=== PATIENT | male | born 1980 | race Caucasian/White ===

== ENCOUNTER 2016-10-10 08:05 | Emergency (ER) | payer MEDICAID ==
[~2016-10-10] VITALS: Ht 172.7 cm; Wt 64.1 kg
[~2016-10-10 08:05] MED LIST: BUPR1FIL5 PO; QUET50TA8 PO
[2016-10-10 09:57] VITALS: BP 105/67
[2016-10-10] MEDS ORDERED: METH40TA3 PO (20:38)
[2016-10-10] MEDS ORDERED: ALBU0.63 NEB (20:39)
== END 2016-10-10 10:01 | disposition home or self-care (01) ==
LOC: ED 08:16
DX: F11.129 Opioid abuse with intoxication, unspecified (principal); J98.01 Acute bronchospasm; Z87.891 Personal history of nicotine dependence
CPT/HCPCS: 71020; 99284; J7512

== ENCOUNTER 2016-10-10 20:20 | Emergency (ER) | payer MEDICAID ==
[~2016-10-10] VITALS: Ht 172.7 cm; Wt 70.0 kg
[2016-10-10] MEDS ORDERED: METH40TA3 PO (20:38)
[2016-10-10] MEDS ORDERED: ALBU0.63 NEB (20:39)
[2016-10-10] MEDS ORDERED: ALBUTEROL/IPRATROPIUM 2.5MG/0.5MG, 3 ML ONE (21:15)
[2016-10-10 22:02] LABS: ACETAMINOPHEN < 2 mcg/mL (10-30)
[2016-10-10 22:04] VITALS: BP 101/59
[2016-10-10 22:45] LABS: DAU SCREEN DISCLAIMER
[2016-10-10 22:48] LABS: ASPARTATE AMINO TRANSFERASE 31 U/L (15-37); BLOOD UREA NITROGEN 19 mg/dL (7-18)
== END 2016-10-10 23:45 | disposition home or self-care (01) ==
LOC: ED 23:37
DX: J45.21 Mild intermittent asthma with (acute) exacerbation (principal); F11.10 Opioid abuse, uncomplicated
CPT/HCPCS: 36415; 80053; 80307; 80329; 85025; 85379; 93005; 94640; 99285; G0480; J7512

== ENCOUNTER 2017-02-06 10:29 | Emergency (ER) | payer MEDICAID ==
[~2017-02-06] VITALS: Ht 172.7 cm; Wt 63.6 kg
[~2017-02-06 10:29] MED LIST changes: +ALBU0.63 NEB; +METH40TA3 PO
[2017-02-06] MEDS ORDERED: LIDOCAINE 1%, 20ML ONE (11:58)
[2017-02-06] MEDS ORDERED: IBUPROFEN 200 MG TABLET ONE (13:02)
[2017-02-06 13:05] VITALS: BP 106/75
[2017-02-06] MEDS ORDERED: IBUPROFEN 200 MG TABLET PO ONE (13:30)
== END 2017-02-06 13:11 | disposition home or self-care (01) ==
LOC: ED 10:53
DX: L02.413 Cutaneous abscess of right upper limb (principal); J45.909 Unspecified asthma, uncomplicated; F19.10 Other psychoactive substance abuse, uncomplicated
CPT/HCPCS: 10060

== ENCOUNTER 2017-02-08 22:07 | Emergency (ER) | payer MEDICAID ==
[~2017-02-08] VITALS: Ht 172.7 cm; Wt 63.9 kg
[2017-02-08 22:08] VITALS: BP 105/70
== END 2017-02-08 22:39 | disposition home or self-care (01) ==
LOC: ED 22:35
DX: L02.413 Cutaneous abscess of right upper limb (principal); F17.210 Nicotine dependence, cigarettes, uncomplicated; J45.909 Unspecified asthma, uncomplicated
CPT/HCPCS: 99281

== ENCOUNTER 2017-07-03 04:14 | Emergency (ER) | payer MEDICAID ==
[~2017-07-03] VITALS: Ht 172.7 cm; Wt 62.3 kg
[2017-07-03 04:15] VITALS: BP 106/73
== END 2017-07-03 04:31 | disposition left against medical advice (07) ==
LOC: ED 04:25
DX: Z53.21 Procedure and treatment not carried out due to patient leaving prior to being seen by health care provider (principal)

== ENCOUNTER 2017-09-14 01:45 | Emergency (ER) | payer MEDICAID ==
[~2017-09-14] VITALS: Ht 172.7 cm; Wt 58.8 kg
[2017-09-14 01:47] VITALS: BP 111/71
== END 2017-09-14 02:34 | disposition home or self-care (01) ==
LOC: ED 02:05
DX: L02.413 Cutaneous abscess of right upper limb (principal); J45.909 Unspecified asthma, uncomplicated
CPT/HCPCS: 99281

== ENCOUNTER 2018-06-07 20:00 | Emergency (ER) | payer MEDICAID ==
[~2018-06-07] VITALS: Ht 172.7 cm; Wt 62.0 kg
[~2018-06-07 20:00] MED LIST changes: -QUET50TA8 PO; +QUET50TA9 PO
[2018-06-07 20:08] VITALS: BP 114/72
== END 2018-06-07 21:22 | disposition home or self-care (01) ==
LOC: ED 21:10
DX: J06.9 Acute upper respiratory infection, unspecified (principal); J18.9 Pneumonia, unspecified organism; J45.909 Unspecified asthma, uncomplicated
CPT/HCPCS: 71046; 93005; 99283; J7512

== ENCOUNTER 2019-03-21 03:53 | Emergency (ER) | payer SELFPAY ==
[~2019-03-21] VITALS: Ht 172.7 cm; Wt 61.3 kg
[2019-03-21 03:55] VITALS: BP 85/59
[2019-03-21] MEDS ORDERED: METH40TA3 PO (03:59)
[2019-03-21] MEDS ORDERED: ALBUTEROL/IPRATROPIUM 2.5MG/0.5MG, 3 ML ONE (04:19)
--- NOTE | 2019-03-21 04:23 | NUR ---
WHILE PREFORMING EKG, RN FOUND HYPODERMIC NEEDLE IN PT RIGHT SOCK. PT STATES "OH I'LL GRAB THAT" AND PUTS NEEDLE IN HIS POCKET. PT ALSO PULLS A VIAL OF NARCAN OUT OF HIS LEFT SOCK AND STATES "YA KNOW, SAFETY FIRST".
[2019-03-21] MEDS ORDERED: ALBUTEROL/IPRATROPIUM 2.5MG/0.5MG, 3 ML NPPB ONE (04:30)
--- NOTE | 2019-03-21 05:02 | NUR ---
REPORT RECEIVED, CARE ASSUMED. WAITING FOR CXR RESULTS.
--- NOTE | 2019-03-21 05:59 | NUR ---
PT DOZING INTERMITTERNTLY, AROUSES EASILY. NO IV TO DC. REVIEWED DC INSTRUCTIONS WITH PT, UNDERSTANDING VERBALIZED. PT LEFT AMB, GAIT STEADY.
== END 2019-03-21 06:02 | disposition home or self-care (01) ==
LOC: ED 05:55
DX: J20.8 Acute bronchitis due to other specified organisms (principal); B96.89 Other specified bacterial agents as the cause of diseases classified elsewhere; F17.210 Nicotine dependence, cigarettes, uncomplicated; J45.909 Unspecified asthma, uncomplicated
CPT/HCPCS: 71046; 93005; 94640; 99283; 99407; J7620

== ENCOUNTER 2019-11-29 09:12 | Emergency (ER) | payer MEDICAID ==
[~2019-11-29] VITALS: Ht 172.7 cm; Wt 74.2 kg
[2019-11-29 10:09] LABS: BASOPHILS # (AUTO) 0.04 x10^3/uL (0-0.1); BASOPHILS % (AUTO) 0 % (0-1); EOSINOPHILS # (AUTO) 0.49 x10^3/uL (0-0.4); EOSINOPHILS % (AUTO) 5 % (1-7); LYMPHOCYTES % (AUTO) 21 % (22-44); MD NO; MEAN CORPUSCULAR HEMOGLOBIN 32.9 pg (27.5-34.5); MEAN CORPUSCULAR HGB CONC 33.4 g/dL (33.2-36.2); MEAN CORPUSCULAR VOLUME 98.5 fL (81-97); MEAN PLATELET VOLUME 7.8 fL (7.4-10.4); MONOCYTES % (AUTO) 8 % (2-9); NEUTROPHILS # (AUTO) 5.98 x10^3/uL (1.8-6.8); NEUTROPHILS % (AUTO) 66 % (42-75); PLATELET COUNT 203 x10^3/uL (130-400); RED BLOOD COUNT 5.16 x10^6/uL (4.38-5.82); RED CELL DISTRIBUTION WIDTH 12.8 % (9.4-14.8)
[2019-11-29 10:15] LABS: ANION GAP 3 mmol/L (5-15); CALCIUM 9.5 mg/dL (8.5-10.1); CHLORIDE 110 mmol/L (98-107); CREATININE 1.15 mg/dL (0.7-1.3)
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
--- NOTE | 2019-11-29 10:18 | NUR ---
late entry for 1016 pt to room from lobby at this time. robson
[2019-11-29 11:00] VITALS: BP 137/70
== END 2019-11-29 11:01 | disposition home or self-care (01) ==
LOC: ED 10:42
DX: J45.31 Mild persistent asthma with (acute) exacerbation (principal); Z76.0 Encounter for issue of repeat prescription; R94.31 Abnormal electrocardiogram [ECG] [EKG]; I10 Essential (primary) hypertension
CPT/HCPCS: 36415; 71046; 80048; 85025; 93005; 99285